=== PATIENT | male | born 1985 | race Caucasian/White ===

== ENCOUNTER 2017-06-14 19:29 | Emergency (ER) | payer MEDICARE ==
[2017-06-14 19:32] VITALS: BP 144/91; PULSE 70; RESP 16; TEMP 98.2; O2SAT 98
--- NOTE | 2017-06-14 20:32 | RADRPT ---
EXAM DATE/TIME: 06/14/2017 20:06 [place] COMPARISON: No previous studies available for comparison. INDICATIONS : Right hand, fifith digit pain and swelling. Patient cut finger on sheet metal a month ago. MEDICAL HISTORY : None. SURGICAL HISTORY : None. ENCOUNTER: Initial ACUITY: 1 month PAIN SCORE: 10/10 LOCATION: Right hand, fifth digit. FINDINGS: Examination of the fifth digit of the right hand demonstrates no evidence of fracture or dislocation. No radiopaque foreign bodies are seen. The soft tissues are intact. CONCLUSION: Unremarkable examination of the right fifth finger. Feliberto Pelayo Jr., MD on June 14, 2017 at 20:29 Board Certified Radiologist. This report was verified electronically.
--- NOTE | 2017-06-14 21:10 | PD ---
HPI Chief Complaint: Skin Problem Time Seen by Provider: 20:59 Travel History International Travel<30 days: No Contact w/Intl Traveler<30days: No Traveled to known affect area: No History of Present Illness HPI ABOUT 3 WEEKS AGO, PATIENT GOT AN INJURY TO DORSUM OF 5TH DIGIT OF RT HAND...WAS SEEN BY DOCTOR IN [place] (GIVEN VANCO IV) AND ALSO CLINDA TO GO HOME ON. ADDITIONALLY HE WAS PLACED ON BACTRIM WHICH HE IS STILL ON. APPARENTLY ACCORDING TO HIM WHEN HE WENT BACK TO DOCTOR IN [place] HE WOULD NOT "ACCEPT MY INSURANCE" AND WAS TOLD THAT I MAY NEED DRAINING PROCEDURE BUT JUST LEFT IT AT THAT. SO PATIENT IS HERE TO SEEK CARE. PFSH Social History Tobacco Use: No Allergies-Medications (Allergen,Severity, Reaction): Coded Allergies: No Known Allergies (Unverified , 06/14/17) Reported Meds & Prescriptions Reported Meds & Active Scripts Active Reported Zoloft (Sertraline HCl) 100 Mg Tab 100 Mg PO DAILY Bactrim (Sulfamethoxazole-Trimethoprim) 400-80 Mg Tab 1 Tab PO BID Review of Systems Except as stated in HPI: all other systems reviewed are Neg General / Constitutional: No: Fever Eyes: No: Visual changes HENT: No: Headaches Cardiovascular: No: Chest Pain or Discomfort Respiratory: No: Shortness of Breath Gastrointestinal: No: Abdominal Pain Genitourinary: No: Dysuria Musculoskeletal: No: Pain Skin: Positive Lesions Neurologic: No: Weakness Psychiatric: No: Depression Endocrine: No: Polydipsia Hematologic/Lymphatic: No: Easy Bruising Physical Exam Narrative GENERAL: SKIN: Warm and dry....DORSUM OVER PROX PHALANX OF RT 5TH DIGIT HAS EDEMA, NO SPONT DRAINAGE, NO STREAKING, NO LAD, HEAD: Atraumatic. Normocephalic. EYES: Pupils equal and round. No scleral icterus. No injection or drainage. ENT: No nasal bleeding or discharge. Mucous membranes pink and moist. NECK: Trachea midline. No JVD. CARDIOVASCULAR: Regular rate and rhythm. RESPIRATORY: No accessory muscle use. Clear to auscultation. Breath sounds equal bilaterally. GASTROINTESTINAL: Abdomen soft, non-tender, nondistended. Hepatic and splenic margins not palpable. MUSCULOSKELETAL: Extremities without clubbing, cyanosis, or edema. No obvious deformities. NEUROLOGICAL: Awake and alert. No obvious cranial nerve deficits. Motor grossly within normal limits. Five out of 5 muscle strength in the arms and legs. Normal speech. PSYCHIATRIC: Appropriate mood and affect; insight and judgment normal. Data Data Last Documented VS Orders Orders Complete Blood Count With Diff (06/14/17 19:41) Basic Metabolic Panel (Bmp) (06/14/17 19:41) Westergren Sedimentation Rate (06/14/17 19:41) Finger ([id number]) (06/14/17 ) Clindamycin Inj (Cleocin Inj) (06/14/17 21:30) Mandatory Outpatient Referral (06/14/17 21:31) Ed Discharge Order (06/14/17 21:36) Labs Laboratory Tests Test 06/14/17 21:45 White Blood Count 9.2 TH/MM3 Red Blood Count 5.46 MIL/MM3 Hemoglobin 16.4 GM/DL Hematocrit 48.3 % Mean Corpuscular Volume 88.5 FL Mean Corpuscular Hemoglobin 30.1 PG Mean Corpuscular Hemoglobin Concent 34.0 % Red Cell Distribution Width 13.5 % Platelet Count 357 TH/MM3 Mean Platelet Volume 7.9 FL Neutrophils (%) (Auto) 54.6 % Lymphocytes (%) (Auto) 30.0 % Monocytes (%) (Auto) 12.3 % Eosinophils (%) (Auto) 2.1 % Basophils (%) (Auto) 1.0 % Neutrophils # (Auto) 5.0 TH/MM3 Lymphocytes # (Auto) 2.8 TH/MM3 Monocytes # (Auto) 1.1 TH/MM3 Eosinophils # (Auto) 0.2 TH/MM3 Basophils # (Auto) 0.1 TH/MM3 CBC Comment DIFF FINAL Differential Comment Erythrocyte Sedimentation Rate 1 mm/hr Blood Urea Nitrogen 27 MG/DL Creatinine 1.21 MG/DL Random Glucose 97 MG/DL Calcium Level 9.0 MG/DL Sodium Level 140 MEQ/L Potassium Level 3.9 MEQ/L Chloride Level 106 MEQ/L Carbon Dioxide Level 24.4 MEQ/L Anion Gap 10 MEQ/L Estimat Glomerular Filtration Rate 70 ML/MIN MDM Medical Decision Making Medical Screen Exam Complete: Yes Emergency Medical Condition: Yes Medical Record Reviewed: Yes Differential Diagnosis OSTEO V ABSCESS V CELLULITITIS Narrative Course PATIENT BASED ON LONG HISTORY, IN MY OPINION WILL NEED A HAND SURGEON TO EVAL FOR NEED TO I&D WITH POSSIBLITY OF DRAIN PLACEMENT. WILL BE REFERRED Diagnosis Primary Impression: 5TH DIGIT ABSCESS Referrals: Harvinder Coley MD FOR EVALUATION OF YOUR DIGIT AND FOR ADVICE ON WHAT FURTHER CARE IT WILL NEED. Additional Instructions: CONTINUE TAKING YOUR ANTIBIOTICS AND ALSO TAKE THE ONES I'M PRESCRIBING. i AM GIVING YOU A REFERRAL TO [facility]. Disposition: 01 DISCHARGE HOME Condition: Stable Hector Morrell MD Jun 14, 2017 21:10
[2017-06-14] MEDS ORDERED: DOXY100C PO (21:30)
[2017-06-14] MEDS ORDERED: CLINDAMYCIN PHOS 300 MG/2 ML VIAL IM ONE (21:30)
[2017-06-14] MEDS ORDERED: ZOLO100T PO (21:52)
[2017-06-14] MEDS ORDERED: BACT400T PO (21:52)
[2017-06-14 22:06] LABS: BASOPHIL # 0.1 TH/MM3 (0-0.2); EOSINOPHIL # 0.2 TH/MM3 (0-0.4); EOSINOPHIL % 2.1 % (0.0-4.0); HEMATOCRIT 48.3 % (39.0-51.0); HEMO FLAGS DIFF FINAL; LYMPHOCYTE # 2.8 TH/MM3 (1.0-4.8); MEAN CELL VOLUME 88.5 FL (80.0-100.0); MEAN CORPUSCULAR HEMOGLOBIN 30.1 PG (27.0-34.0); MONO % 12.3 % (0.0-8.0); NEUT % 54.6 % (16.0-70.0); PLATELET COUNT 357 TH/MM3 (150-450); RED BLOOD COUNT 5.46 MIL/MM3 (4.50-5.90); RED CELL DISTRIBUTION WIDTH 13.5 % (11.6-17.2); WHITE BLOOD COUNT 9.2 TH/MM3 (4.0-11.0)
[2017-06-14 22:59] LABS: BICARBONATE 24.4 MEQ/L (21.0-32.0)
[2017-06-14 23:00] LABS: POTASSIUM 3.9 MEQ/L (3.5-5.1)
== END 2017-06-14 22:29 | disposition home or self-care (01) ==
LOC: NEPC 19:29
DX: L02.511 Cutaneous abscess of right hand (principal)
CPT/HCPCS: 73140; 80048; 85025; 85652; 96372